=== PATIENT | female | born 1975 | race American Indian/Alaskan Native ===

== ENCOUNTER 2017-05-10 05:51 | Observation (INO) | payer OTHER ==
[2017-05-06 11:08] LABS: Basophils % (Auto) 1.1 % (0.0-1.8); Eosinophils % (Auto) 0.8 % (0.0-4.3); Hematocrit 34.8 % (30.3-42.9); Hemoglobin 11.6 gm/dl (10.1-14.3); Mean Corpuscular HGB Conc 33 % (30-34); Mean Corpuscular Hemoglobin 27 pg (28-32); Mean Corpuscular Volume 80 fl (79-97); Platelet Count 257 K/mm3 (140-440); Red Blood Count 4.33 M/mm3 (3.65-5.03); Red Cell Distribution Width 15.8 % (13.2-15.2); White Blood Count 4.4 K/mm3 (4.5-11.0)
--- NOTE | 2017-05-06 11:34 | Anesthesia Consultation ---
Anesthesia Consult and Med Hx Date of service: 05/06/17 - Airway Anesthetic Teeth Evaluation: Good, Crowns ROM Head & Neck: Adequate Mental/Hyoid Distance: Adequate Mallampati Class: Class II Intubation Access Assessment: Probably Good - Pulmonary Exam CTA: Yes - Cardiac Exam Cardiac Exam: RRR - Pre-Operative Health Status ASA Pre-Surgery Classification: ASA2, ASA3 Proposed Anesthetic Plan: General (patient has had several surgeries: 2 c- sections, L ing hernia repair, ramon, repair of bowel obstruction; R wrist fx, heart ablation) Nerve Block: Tap (Discussed as possible alternative for post-op pain management - since pt allergic to many oral pain meds) - Pulmonary Hx Smoking: No - Cardiovascular System Hx Hypertension: No - Central Nervous System Hx Seizures: Yes (last was approx 08/2016) Hx Psychiatric Problems: No - Gastrointestinal Hx Gastroesophageal Reflux Disease: Yes - Hematic Hx Anemia: Yes Hx Sickle Cell Disease: Yes (Trait only) - Other Systems Hx Cancer: No
[2017-05-10] MEDS ORDERED: ANCEF/STERILE WATER 2 GM/20 ML IV NR (06:46)
[2017-05-10] MEDS ORDERED: PEPCID IV NR (07:00)
[2017-05-10] MEDS ORDERED: LACTATED RINGERS 1,000 ML IV SCH (07:00)
[2017-05-10] MEDS ORDERED: VERSED IV NR (07:00)
--- NOTE | 2017-05-10 07:00 | History and Physical Report ---
History of Present Illness Date of examination: 05/10/17 Chief complaint: Heavy and Abnormal uterine bleeding History of present illness: C/O: Abnormal uterine bleeding x ~ 12 yrs Severe dysmenorrhea 41-year-old is here for hysterectomy. She has had irregular and heavy bleeding 12 years. She also has had severe dysmenorrhea Pelvic ultrasound obtained September 2016 shows a 9 cm uterus, no fibroids. Endometrial biopsy negative She is status post uterine artery embolization for fibroids in 2011 Gynhx:As above Normal PAP in 2017 Has regular colonoscopies Medhx:?Seizures, Migraines Sughx: section 2, inguinal hernia repair, bowel obstruction status post resection in 2009, lap is A cholecystectomy in 2008, heart catheterization with ablation, left pains and complete, status post uterine embolization in 2011 fibroids Obhx: above ( # 1, then C-S # 2 (Had twins in 1991) Meds:Keppra 250mg QD, Protonix 40mg QD ALL:Hydrocodon, Oxycodone, Tramadol, [place] Fshx:Single, no smoking A: AUB/HMB Pelvic pain P: -We discussed options for care and she chose hysterectomy. Advised this will be an LAVH with possible conversion to open due to her history of numerous surgeries including bowel resection for obstruction due to adhesions. We then reviewed risks of surgery in detail including injury to surrounding organs and vessels, bleeding infection and pain. We especially reviewed risks to the urinary system including bladder and ureters. All questions were answered, and she signed consent. -Proceed to the OR once available Medications and Allergies Allergies Allergy/AdvReac Type Severity Reaction Status Date / Time hydrocodone Allergy Intermediate Rash Verified 05/04/17 16:40 oxycodone Allergy Intermediate Rash Verified 05/04/17 16:40 Sulfa (Sulfonamide Allergy Intermediate Rash Verified 05/04/17 16:40 Antibiotics) acetaminophen [From Lortab] AdvReac Intermediate Rash Verified 03/12/16 11:51 hydrocodone bitartrate AdvReac Intermediate Rash Verified 05/04/17 16:40 [From Lortab] terbutaline AdvReac Intermediate Rash Verified 05/04/17 16:40 tramadol AdvReac Intermediate Rash Verified 05/04/17 16:40 Home Medications Medication Instructions Recorded Confirmed Last Taken Type Ferrous Sulfate [Iron] 325 mg PO DAILY 05/04/17 05/04/17 Unknown History Magnesium Oxide [Mag-Ox] 400 mg PO QDAY 05/04/17 05/04/17 Unknown History Meloxicam 15 mg PO DAILY 05/04/17 05/04/17 Unknown History Pantoprazole [Protonix] 40 mg PO QDAY 05/04/17 05/04/17 Unknown History Riboflavin (Vitamin B2) 400 mg PO DAILY 05/04/17 05/04/17 Unknown History [Riboflavin] levETIRAcetam [Keppra TAB] 250 mg PO DAILY 05/04/17 05/04/17 Unknown History Active Meds: Active Medications Cefazolin Sodium (Ancef/Sterile Water 2 Gm/20 Ml) 2 gm IV PREOP NR Stop: 05/10/17 23:59 Famotidine (Pepcid) 20 mg IV PREOP NR Stop: 05/10/17 23:59 Lactated Ringer's (Lactated Ringers) 1,000 mls @ 100 mls/hr IV DIRECT MARIANA Stop: 05/10/17 23:59 Midazolam HCl (Versed) 2 mg IV PREOP NR Stop: 05/10/17 23:59 - Vital Signs Vital signs: Vital Signs Temp Pulse Resp BP 98.4 F 72 16 104/68 05/06/17 10:45 05/06/17 10:45 05/06/17 10:45 05/06/17 10:45 Temp Pulse Resp BP Pulse Ox 98.4 F 72 16 104/68 05/06/17 10:45 05/06/17 10:45 05/06/17 10:45 05/06/17 10:45 Results Result Diagrams: 05/06/17 10:50 All other labs normal.
--- NOTE | 2017-05-10 07:04 | Short Stay Summary ---
Short Stay Documentation Date of service: 05/10/17 Narrative H&P: C/O: Abnormal uterine bleeding x ~ 12 yrs Severe dysmenorrhea 41-year-old is here for hysterectomy. She has had irregular and heavy bleeding 12 years. She also has had severe dysmenorrhea Pelvic ultrasound obtained September 2016 shows a 9 cm uterus, no fibroids. Endometrial biopsy negative She is status post uterine artery embolization for fibroids in 2011 Gynhx:As above Normal PAP in 2017 Has regular colonoscopies Medhx:?Seizures, Migraines Sughx: section 2, inguinal hernia repair, bowel obstruction status post resection in 2009, lap is A cholecystectomy in 2008, heart catheterization with ablation, left pains and complete, status post uterine embolization in 2011 fibroids Obhx: above ( # 1, then C-S # 2 (Had twins in 1991) Meds:Keppra 250mg QD, Protonix 40mg QD ALL:Hydrocodon, Oxycodone, Tramadol, [place] Fshx:Single, no smoking A: AUB/HMB Pelvic pain P: -We discussed options for care and she chose hysterectomy. Advised this will be an LAVH with possible conversion to open due to her history of numerous surgeries including bowel resection for obstruction due to adhesions. We then reviewed risks of surgery in detail including injury to surrounding organs and vessels, bleeding infection and pain. We especially reviewed risks to the urinary system including bladder and ureters. All questions were answered, and she signed consent. -Proceed to the OR once available - History Past Medical History: arrhythmia, migraines, seizures Past Surgical History: cholecystectomy, (x2), hernia repair, PTCA, bowel surgery (bowel resection for adhesions), Other (status post surgery to the left lower extremity) Social history: single, full code, no smoking, no alcohol abuse, no prescription drug abuse, no IV drug use - Allergies and Medications Current Medications: Allergies hydrocodone Allergy (Intermediate, Verified 05/04/17 16:40) Rash oxycodone Allergy (Intermediate, Verified 05/04/17 16:40) Rash Sulfa (Sulfonamide Antibiotics) Allergy (Intermediate, Verified 05/04/17 16:40) Rash acetaminophen [From Lortab] Adverse Reaction (Intermediate, Verified 03/12/16 11 :51) Rash hydrocodone bitartrate [From Lortab] Adverse Reaction (Intermediate, Verified 16:40) Rash terbutaline Adverse Reaction (Intermediate, Verified 05/04/17 16:40) Rash tramadol Adverse Reaction (Intermediate, Verified 05/04/17 16:40) Rash Home Medications Medication Instructions Recorded Confirmed Last Taken Type Ferrous Sulfate [Iron] 325 mg PO DAILY 05/04/17 05/04/17 Unknown History Magnesium Oxide [Mag-Ox] 400 mg PO QDAY 05/04/17 05/04/17 Unknown History Meloxicam 15 mg PO DAILY 05/04/17 05/04/17 Unknown History Pantoprazole [Protonix] 40 mg PO QDAY 05/04/17 05/04/17 Unknown History Riboflavin (Vitamin B2) 400 mg PO DAILY 05/04/17 05/04/17 Unknown History [Riboflavin] levETIRAcetam [Keppra TAB] 250 mg PO DAILY 05/04/17 05/04/17 Unknown History Active Medications Cefazolin Sodium (Ancef/Sterile Water 2 Gm/20 Ml) 2 gm IV PREOP NR Stop: 05/10/17 23:59 Famotidine (Pepcid) 20 mg IV PREOP NR Stop: 05/10/17 23:59 Lactated Ringer's (Lactated Ringers) 1,000 mls @ 100 mls/hr IV DIRECT MARIANA Stop: 05/10/17 23:59 Midazolam HCl (Versed) 2 mg IV PREOP NR Stop: 05/10/17 23:59 - Physical exam General appearance: no acute distress, well-nourished Lungs: Clear to auscultation, Normal air movement Heart: Regular rate, Normal S1, Normal S2 Gastrointestinal: normal, normoactive bowel sounds, no masses, no guarding, no costovertebral Female Genitourinary: normal Extremities: no ischemia Neurological: Normal gait, Normal speech - Brief post op/procedure progress note Date of procedure: 05/10/17 Pre-op diagnosis: AUB/HMB, Chronic Pelvic pain Post-op diagnosis: same Procedure: LAVH with Bilateral salpingectomy Anesthesia: GETA Findings: Normal uterus tubes and ovaries bilaterally, minimal adhesions Surgeon: CHANCE LUJAN Estimated blood loss: 50-100ml Pathology: list (uterus, cervix and tubes) Specimen disposition: to lab Condition: stable Short Stay Discharge Plan Follow up with: PRIMARY CARE, [Primary Care Provider] - 7 Days Prescriptions: HYDROmorphone [Dilaudid] 2 mg PO Q6HR #20 tablet Ibuprofen [Motrin 600 MG tab] 600 mg PO Q8H PRN #30 tablet PRN Reason: Pain Multivitamin with Iron [Multivitamins with Iron] 1 each PO DAILY #30 tablet
[2017-05-10] MEDS ORDERED: ZEMURON IV ONE (07:23)
[2017-05-10] MEDS ORDERED: ZOFRAN ONE ×2 (07:23→12:38)
[2017-05-10] MEDS ORDERED: REGLAN ONE (07:23)
[2017-05-10] MEDS ORDERED: QUELICIN ONE (07:23)
[2017-05-10] MEDS ORDERED: XYLOCAINE MPF 2% ONE (07:23)
[2017-05-10] MEDS ORDERED: SUBLIMAZE ONE ×3 (07:24→09:26)
[2017-05-10] MEDS ORDERED: DIPRIVAN 10 MG/ML IV ONE (07:24)
[2017-05-10] MEDS ORDERED: MARCAINE 0.25% INFILTRATI ONE ×3 (07:39→08:30)
[2017-05-10] MEDS ORDERED: METHYLENE BLUE ONE (07:39)
[2017-05-10 07:50] LABS: Alanine Aminotransferase 7 units/L (7-56); Albumin 4.3 g/dL (3.9-5); Albumin/Globulin Ratio 1.2 %; Alkaline Phosphatase 57 units/L (35-129); Anion Gap 15 mmol/L; BUN/Creatinine Ratio 10; Blood Urea Nitrogen 7 mg/dL (7-17); Calcium 9.4 mg/dL (8.4-10.2); Carbon Dioxide 26 mmol/L (22-30); Chloride 103.2 mmol/L (98-107); Glucose 84 mg/dL (65-100); Potassium 3.6 mmol/L (3.6-5.0); Sodium 141 mmol/L (137-145); Total Protein 7.8 g/dL (6.3-8.2)
[2017-05-10] MEDS ORDERED: NACL 0.9% IR ONE (08:55)
[2017-05-10] MEDS ORDERED: MORPHINE ONE (09:15)
[2017-05-10] MEDS ORDERED: LACTATED RINGERS 1,000 ML ONE ×2 (09:15→10:12)
[2017-05-10] MEDS ORDERED: NEOSTIGMINE ONE (10:01)
[2017-05-10] MEDS ORDERED: ROBINUL ONE ×2 (10:01)
--- NOTE | 2017-05-10 11:21 | Operative Report ---
Operative Report Operative Report: DATE: 2016 PREOPERATIVE DIAGNOSIS: Abnormal uterine bleeding, heavy menstrual bleeding, Chronic pelvic pain POSTOP DIAGNOSIS: Above NAME OF PROCEDURE: Laparoscopic assisted vaginal hysterectomy with bilateral salpingectomy SURGEON: CHANCE LUJAN MD ENVIRONMENTAL EMERGENCIES PLANNER: VIELKA TORRES ANESTHESIA: Gen. EBL: 700 mL PATHOLOGY SPECIMEN: Uterus, cervix and tubes URINE OUTPUT: 500 mL FINDINGS: Normal uterus tubes and ovaries bilaterally, minimal adhesions, Filshie clips DESCRIPTION OF PROCEDURE: After informed consent, patient was taken to the operating room where she was prepped and draped in a sterile fashion. She was placed in dorsolithotomy position then a العراقي catheter was placed without difficulty . Glass speculum speculum was placed in the patient's vagina and single-tooth was used to grab the anterior lip. A Vcare uterine manipulator was advanced into the patient's cervical os without difficulty and the balloon was inflated. Attention was then turned to the patient's abdomen where 1/4 percent Marcaine was injected then a 1-1/2 cm incision was made in the umbilical fold; using S retractors, the subcutaneous tissue was dissected down to expose the fascia. Fascia was grasped with Nuvia forceps, elevated and an incision was made in the midline using Metzenbaum scissors. Fascial incision was extended with use of Thais forceps and then S retractors were placed in the incisional hole. Peritoneal layer was seen and grasped with Allises 2; this was elevated and incision was made in the midline using Metzenbaum scissors. S retractors were placed in the incisional hole in the peritoneum and then a Us trocar was advanced into the patient's abdomen without difficulty. CO2 gas was used to obtain intra-abdominal insufflation. Bulbous enlarged uterus was noted immediately; normal ovaries and tubes bilaterally. Attention was then turned to the patient's left and right lower quadrants where under direct visualization 10 mm trocars were advanced into the patient's abdomen without difficulty. Using 10 mm LigaSure, the round ligaments and the utero-ovarian ligaments on both sides were grasped and cauterized and transected. Uterine arteries on both sides were grasped with LigaSure then cauterized and transected. After a period of observation confirming hemostasis attention was then turned to the patient's vagina. The العراقي catheter and a Vcare uterine manipulator were removed, and weighted speculum was placed in the patient's vagina. A single tenaculum was then used to grab the cervix. Using a scalpel a circumferential incision was made around the cervix; the vaginal cuff was then pushed cephalad away from the cervix. Attention was then turned to the patient's posterior fornix; using smooth pickups, the peritoneal layer covering the posterior fornix was grasped, elevated and an incision made using Metzenbaums. Entry into the peritoneal cavity was confirmed then the long weighted speculum was placed into into the peritoneal opening. We then proceeded to serially grab the uterosacrals on both sides using Liseth forceps; these were clamped cut and suture ligated using 0 Vicryl. We Serially grabbed the cardinal ligament complex on both sides with Listeh clamps and proceeded to clamp cut and suture ligate these. We made sure the bladder flap was pushed away from our surgical site. The broad and the utero-ovarian ligaments had been previously transected from above. The uterus was then delivered from the vagina and removed from the surgical field. We then grabbed the vaginal cuff with Allis forceps and elevated this; using 0 Vicryl on a runner angle stitch was placed on the vaginal cuff and then the posterior cuff was closed in a running locked fashion. A sponge stick with 4 x 4 gauze was used to push away the bowel doing closure of the posterior cuff. During this, the gauze was inadvertently included in the suture. Sponge stick was removed from the patient's vagina and placed on my lap outside the vagina. The 4x4 was then cut outside the vagina on my lap. The anterior cuff was then closed using 0 Vicryl; this process disclosed entire vaginal cuff. . Attention was then turned back to the patient's abdomen where CO2 insufflation was used to obtain intra-abdominal distention. Both fallopian tubes were then grasped and cauterized and transected using LigaSure and then removed from the surgical field. CO2 gas was then reduced with no intra-abdominal bleeding noted. Tisseel hemostatic agent was applied over all surgical sites. All instruments were then removed from the patient's vagina, all fascial layers were closed using 0 Vicryl. The skin was then closed in a subcuticular manner using 4-0 Monocryl. Vagina was packed with gauze. She tolerated the procedure well, lap and instrument counts were correct 2 she is transferred to PACU in stable condition. Note that she did get 2 g of Ancef prior to procedure.
[2017-05-10] MEDS ORDERED: NARCAN 0.4 MG/1 ML IV PRN (11:22)
[2017-05-10] MEDS ORDERED: NORCO 5/325 PO PRN (11:22)
[2017-05-10] MEDS ORDERED: ZOFRAN IV PRN (11:22)
--- NOTE | 2017-05-10 11:29 | XRay Report ---
AP pelvis: Instrument count. AP and lateral projections are obtained. The lateral view is suboptimal for evaluation of deeper structures. In the AP projection there is a small triangular area of increased density consistent with surgical packing. No instrument identified. The findings are not otherwise remarkable.
--- NOTE | 2017-05-10 11:49 | Anesthesia Day of Surgery ---
Anesthesia Day of Surgery - Day of Surgery Patient Examined: Yes Patient H&P Reviewed: Yes Patient is NPO: Yes
--- NOTE | 2017-05-10 11:49 | Post Anesthesia Evaluation ---
- Post Anesthesia Evaluation Patient Participated: Yes Airway Patent: Yes Stable Respiratory Function: Yes Nausea/Vomiting: No Temp > 96.8F: Yes Pain Manageable: Yes Adequeate Hydration: Yes Anesthesia Complications: No Block Receding Appropriately: Not Applicable Patient on Ventilator: No
[2017-05-10] MEDS ORDERED: NACL 0.9% 1000 ML 1,000 ML IV SCH (12:00)
[2017-05-10] MEDS ORDERED: MORPHINE PCA 30MG/30ML IV SCH (12:00)
[2017-05-10] MEDS: DILAUDID IV PRN ×2 (12:15→12:25)
[2017-05-10] MEDS ORDERED: DILAUDID ONE (12:15)
[2017-05-10] MEDS: ZOFRAN IV PRN ×2 (12:37→20:15)
[2017-05-10] MEDS: D5LR 1,000 ML IV SCH ×2 (15:37→22:48)
[2017-05-10] MEDS: SENOKOT S PO SCH (22:30)
[2017-05-10] MEDS: KEPPRA PO SCH (22:31)
[2017-05-10] MEDS: BENADRYL IV PRN (22:52)
[2017-05-11] MEDS: BENADRYL IV PRN (02:30)
[2017-05-11 04:45] LABS: Hematocrit 26.4 % (30.3-42.9); Hemoglobin 8.6 gm/dl (10.1-14.3)
[2017-05-11 05:03] LABS: Anion Gap 15 mmol/L; BUN/Creatinine Ratio 6; Blood Urea Nitrogen 3 mg/dL (7-17); Calcium 8.8 mg/dL (8.4-10.2); Carbon Dioxide 25 mmol/L (22-30); Chloride 108.1 mmol/L (98-107); Glucose 115 mg/dL (65-100); Potassium 3.8 mmol/L (3.6-5.0); Sodium 144 mmol/L (137-145)
--- NOTE | 2017-05-11 06:34 | Progress Note ---
Assessment and Plan POD # 1 s/p LAVH -Stable P: -Patient allergic to numerous narcotics. 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 Has pain issues, no shortness of breath or chest pain, no fever or chills. No flank pain. Has adequate urine output no flatus yet Patient reports: appetite normal, voiding normally, no nauseated Objective - Vital Signs Latest vital signs: Vital Signs Temp Pulse Resp BP BP Pulse Ox 05/11/17 04:20 98.6 F 78 16 97/58 05/11/17 00:15 98.6 F 71 16 101/68 05/10/17 20:15 16 05/10/17 19:25 98.6 F 69 16 98/71 05/10/17 18:03 16 05/10/17 16:37 98.5 F 58 L 20 108/67 05/10/17 16:00 16 05/10/17 13:15 16 05/10/17 13:10 16 05/10/17 13:05 97.8 F 54 L 16 114/69 05/10/17 12:35 97.0 F L 59 L 15 119/72 100 05/10/17 12:20 69 15 119/70 100 05/10/17 12:05 68 18 121/75 100 05/10/17 11:50 60 15 121/69 100 05/10/17 11:45 55 L 16 127/71 100 05/10/17 11:40 68 15 131/68 100 05/10/17 11:36 97.3 F L 92 H 18 128/74 100 05/10/17 07:33 99.2 F 62 18 101/66 100 05/10/17 06:55 99.2 F 62 18 101/66 100 Intake and Output 05/10/17 05/10/17 05/11/17 15:59 23:59 07:59 Intake Total 300 897.917 Output Total 799 363 1546 Balance -290 147.917 -1600 Intake: IV 300 897.917 D5lr 1,000 ml @ 125 mls/ 897.917 hr IV DIRECT [facility] Rx#: [id number] Output: Urine 044 406 7889 Indwelling Catheter 750 1600 Other: Total, Output Amount 750 800 Voiding Method Indwelling Catheter Indwelling Catheter - Exam Abdomen: Present: normal appearance, soft, other (no CVA tenderness). Absent: distention, tenderness, guarding, rigidity Incision: Present: dry, intact - Labs Labs: Abnormal lab results 05/11/17 05/11/17 Range/Units 04:08 04:08 Hgb 8.6 L (10.1-14.3) gm/dl Hct 26.4 L (30.3-42.9) % Chloride 108.1 H (98-107) mmol/L BUN 3 L (7-17) mg/dL Creatinine 0.5 L (0.7-1.2) mg/dL Glucose 115 H (65-100) mg/dL
[2017-05-11] MEDS: TORADOL IV SCH ×2 (06:40→13:07)
[2017-05-11] MEDS: DILAUDID PO PRN ×2 (07:00→17:01)
[2017-05-11] MEDS: TYLENOL PO PRN (07:15)
[2017-05-11] MEDS: SENOKOT S PO SCH ×2 (10:30→22:45)
[2017-05-11] MEDS: PROTONIX PO SCH (13:04)
[2017-05-11] MEDS: KEPPRA PO SCH ×2 (13:13→22:46)
[2017-05-12] MEDS: DILAUDID PO PRN ×2 (08:10→13:53)
--- NOTE | 2017-05-12 10:17 | Progress Note ---
Assessment and Plan - Patient Problems (1) S/P laparoscopic assisted vaginal hysterectomy (LAVH) Onset Date: 05/12/17 Current Visit: Yes Status: Acute Plan to address problem: A: S/P LAVH - POD #2 Doing well P: May go home today Subjective - Subjective Date of service: 05/12/17 Principal diagnosis: POD#2 - s/p LAVH Interval history: Pt states she is having incisional pains, otherwise feeling well. She is tolerating a reg diet without nausea or vomiting, ambulating and voiding without difficulty. Patient reports: appetite normal, voiding normally, flatus, bowel movement, pain poorly controlled, ambulating normally Objective - Vital Signs Latest vital signs: Vital Signs Temp Pulse Resp BP BP Pulse Ox 05/12/17 05:00 99.1 F 84 20 98/57 05/12/17 00:00 99.1 F 76 20 92/58 05/11/17 20:15 100.4 F H 91 H 18 99/58 05/11/17 17:00 98.7 F 68 16 98/56 05/11/17 13:23 98.0 F 82 18 89/49 100 Intake and Output 05/11/17 05/12/17 05/12/17 22:59 06:59 14:59 Intake Total 600 Balance 600 Intake: Oral 240 Intake, Free Water 360 Other: Total, Intake Amount 240 Voiding Method Toilet # Voids Void 1 - Exam Breasts: Present: deferred Cardiovascular: Present: Regular rate Lungs: Present: Clear to auscultation Abdomen: Present: normal appearance, soft Extremities: Present: normal Incision: Present: normal, dry, intact
[2017-05-12] MEDS: PROTONIX PO SCH (10:37)
[2017-05-12] MEDS: SENOKOT S PO SCH (10:38)
[2017-05-12] MEDS: KEPPRA PO SCH (10:38)
[2017-05-12] MEDS: TYLENOL PO PRN (11:14)
[2017-05-12 16:24] VITALS: BP 115/68
== END 2017-05-12 14:00 | disposition home or self-care (01) ==
LOC: OR 05:51 → OB 11:23
PROVIDERS: ADMIT Obstetrics & Gynecology Gynecology; ATTEND Obstetrics & Gynecology Gynecology
DX: N93.9 Abnormal uterine and vaginal bleeding, unspecified (principal); N94.6 Dysmenorrhea, unspecified; G89.29 Other chronic pain; R10.2 Pelvic and perineal pain
CPT/HCPCS: 36415; 58552; 72170; 80048; 80053; 84703; 85014; 85018; 85025; 86850; 86900; 86901; 88300; 88302; 88307; 96374; 96375; 96376; C9250; G0378; J0330; J0690; J1170; J1200; J1885; J2250; J2270; J2405; J2704; J2710; J2765; J3010; J7120; J7121; Q9968

== ENCOUNTER 2019-01-23 14:04 | Outpatient (CLI) | payer OTHER ==
--- NOTE | 2019-01-24 07:11 | Ultrasound Report ---
US abdomen complete INDICATION / CLINICAL INFORMATION: R10.0 ACUTE ABDOMEN PAIN/R10.31 R LOWER QUADRANT PAIN/R10.11R UPP. COMPARISON: None available. FINDINGS: The gallbladder has been surgically removed. Common bile duct is normal measuring 4 mm. A small right renal cyst is seen. Visualized portions of the liver, spleen, left kidney, pancreas, aorta and infer ior vena cava are normal. IMPRESSION: 1. Cholecystectomy 2. Small right renal cyst Signer Name: Arnaldo Mcneill MD FACCipriano Signed: 01/24/2019 7:07 AM Workstation Name: [facility] [id number]
== END 2019-01-23 14:05 | disposition home or self-care (01) ==
LOC: US 14:04
PROVIDERS: ATTEND Nurse Practitioner Family
DX: N28.1 Cyst of kidney, acquired (principal); K21.9 Gastro-esophageal reflux disease without esophagitis
CPT/HCPCS: 76700